=== PATIENT | female | born 1975 | race Caucasian/White ===

== ENCOUNTER 2018-02-20 17:34 | Inpatient (IN) | payer OTHER ==
[~2018-02-20] VITALS: Ht 144.8 cm; Wt 40.5 kg
[2018-02-20] MEDS ORDERED: HYDROCODONE/APAP 5-325MG TABLET PO ONE (18:45)
[2018-02-20] MEDS ORDERED: HYDROCODONE/APAP 5-325MG TABLET ONE (18:54)
--- NOTE | 2018-02-20 19:02 | NUR ---
REPORT GIVEN TO CHOCOLATE PACKER YEN YI.
--- NOTE | 2018-02-20 19:11 | NUR ---
Priya rose in [facility] - 02/20/18 at 1912 by TOM REPORT GIVEN TO YEN YI.
--- NOTE | 2018-02-20 19:35 | NUR ---
PT IN BED. PT'S VISITOR AT BEDSIDE. PT IS AAOX4. PT IS CALM AND COOPERATIVE. PT'S BREATH SOUND ARE CLEAR AND LUNG SOUNDS ARE EVEN AND UNLABORED. NO SIGNS OF DISTRESS WITNESS BY NURSE OR EXPRESSED BY PT AT THIS TIME.
--- NOTE | 2018-02-20 21:00 | NUR ---
REPORT GIVEN TO [facility] NURSECHRISTIAN
[2018-02-20] MEDS ORDERED: HYDROCODONE/APAP 5-325MG TABLET PO PRN (21:15)
[2018-02-20] MEDS ORDERED: HYDROCODONE/APAP 10-325 MG TABLET PO PRN (21:15)
[2018-02-20] MEDS ORDERED: MAGNESIUM HYDROXIDE 30 ML LIQUID UDC PO PRN (21:15)
[2018-02-20] MEDS ORDERED: Z GUARD REMEDY PASTE 57 GM TUBE TOP PRN (21:15)
[2018-02-20] MEDS ORDERED: ONDANSETRON 4 MG/2 ML VIAL IV PRN (21:15)
--- NOTE | 2018-02-20 21:17 | NUR ---
Call received from Dr. Segura (ORTHO) who spoke with ERMNamrata regarding case and will see patient in a.m.
--- NOTE | 2018-02-20 21:25 | NUR ---
Admitted a 42 years old female with diagnosis of Left Tibial Fracture. AAOX4. In no acute distress. Left leg immobilizer with SCOTT bandage in place. Complained of severe pain on left leg. Will give Morphine PRN per order. IV site on right AC intact and patent. Routine admission care done. Plan of care initiated. Safety measure initiated and call moore within reach.
--- NOTE | 2018-02-20 21:25 | NUR ---
Pt. admitted to [facility], under care of ELIZABETH MARTINO Belongs List completed
[2018-02-20 21:30] VITALS: BP 96/57
[2018-02-20] MEDS: MORPHINE SULFATE 2 MG/1 ML DISP.SYRIN IV PRN (22:03)
[2018-02-20] MEDS: IV NS 1000 ML 1,000 ML IV PRN (22:04)
[2018-02-21 04:00] VITALS: BP 92/44
[2018-02-21] MEDS: MORPHINE SULFATE 2 MG/1 ML DISP.SYRIN IV PRN ×3 (04:32→22:52)
[2018-02-21 05:34] VITALS: BP 98/54
--- NOTE | 2018-02-21 06:15 | NUR ---
AOx4. In no acute distress. IV site on right AC remains intact and patent. IVF infusing. Left leg immobilizer in place. Ice compress provided to affected area. Morphine PRN given for complain of pain. Needs attended to and met. Safety measure maintained and call moroe within reach.
[2018-02-21 06:38] LABS: CREATININE 0.6 mg/dL (0.6-1.3); MAGNESIUM 1.9 mg/dL (1.8-2.4); PHOSPHOROUS 3.5 mg/dL (2.5-4.9); POTASSIUM 3.5 mmol/L (3.5-5.1)
[2018-02-21 07:18] LABS: BASOPHILS % (AUTO) 0.2 % (0.0-2.0); EOSINOPHILS % (AUTO) 0.4 % (0.0-7.0); HEMATOCRIT 35.8 % (31.2-41.9); HEMOGLOBIN 12.3 g/dL (10.9-14.3); LYMPHOCYTES # (AUTO) 2.7 K/uL (20.0-40.0); LYMPHOCYTES % (AUTO) 30.1 % (20.5-51.5); MEAN CORPUSCULAR HEMOGLOBIN 31.9 uug (24.7-32.8); MEAN CORPUSCULAR HGB CONC 34 g/dL (32.3-35.6); MEAN CORPUSCULAR VOLUME 93.1 fL (75.5-95.3); MONOCYTES % (AUTO) 11.4 % (0.0-11.0); NEUTROPHILS # (AUTO) 5.1 K/uL (1.8-8.9); NEUTROPHILS % (AUTO) 57.9 % (38.5-71.5); PLATELET COUNT (AUTO) 190 K/uL (179-408); RED BLOOD CELL COUNT(AUTO) 3.85 MIL/uL (3.63-4.92); WHITE BLOOD COUNT (AUTO) 8.9 K/uL (3.8-11.8)
[2018-02-21 11:08] VITALS: BP 100/50
[2018-02-21] MEDS: IV NS 1000 ML 1,000 ML IV PRN ×2 (11:10→22:51)
[2018-02-21 15:33] VITALS: BP 98/41
--- NOTE | 2018-02-21 20:00 | NUR ---
Received patient laying in bed. HOB slightly elevated. A/O x 4. In no acute distress noted. IVF infusing in the R FA. C/O pain and discomfort at fractured leg. Refuse pain medication at the moment. Brace in place on the left lower leg. Safety initiated. DVT pump on the right leg. Call light within reach. Will closely monitor.
[2018-02-22] VITALS (7 sets, daily range): BP systolic 94–116; BP diastolic 48–80
--- NOTE | 2018-02-22 05:28 | NUR ---
Patient slept intermittently t/o shift. C/O pain on the fx leg (Left), meds given, stated relief. IVF infusing on the right AC, patent and intact. Good urine output. U/A was sent to lab. DVT remains in place. Pre op check list done. Safety and comfort measures maintained t/o shift. All meds given as ordered. All needs met.
[2018-02-22 06:48] LABS: BASOPHILS % (AUTO) 0.2 % (0.0-2.0); EOSINOPHILS # (AUTO) 0.1 K/uL (0.0-0.7); EOSINOPHILS % (AUTO) 0.8 % (0.0-7.0); HEMATOCRIT 34.8 % (31.2-41.9); HEMOGLOBIN 11.9 g/dL (10.9-14.3); LYMPHOCYTES # (AUTO) 2.3 K/uL (20.0-40.0); LYMPHOCYTES % (AUTO) 23.6 % (20.5-51.5); MEAN CORPUSCULAR HGB CONC 34 g/dL (32.3-35.6); MEAN CORPUSCULAR VOLUME 93.4 fL (75.5-95.3); MONOCYTES # (AUTO) 0.9 K/uL (2.0-10.0); MONOCYTES % (AUTO) 9.5 % (0.0-11.0); NEUTROPHILS # (AUTO) 6.5 K/uL (1.8-8.9); NEUTROPHILS % (AUTO) 65.9 % (38.5-71.5); PLATELET COUNT (AUTO) 185 K/uL (179-408); RED BLOOD CELL COUNT(AUTO) 3.73 MIL/uL (3.63-4.92); WHITE BLOOD COUNT (AUTO) 9.8 K/uL (3.8-11.8)
[2018-02-22 06:54] LABS: CREATININE 0.6 mg/dL (0.6-1.3); POTASSIUM 3.5 mmol/L (3.5-5.1)
[2018-02-22] MEDS ORDERED: POLYMYXIN B SULFATE 500,000 UNITS, BACITRACIN 50,000 UNITS, NORMAL SALINE 20 ML MC ONE ×3 (07:15)
[2018-02-22] MEDS ORDERED: BUPIVACAINE 0.25% 30 ML VIAL ONE (07:44)
--- NOTE | 2018-02-22 08:19 | NUR ---
pt went for surgery via bed in stable condition
[2018-02-22] MEDS ORDERED: HYDROMORPHONE 2 MG/1 ML DISP.SYRIN ONE (08:42)
[2018-02-22] MEDS ORDERED: MIDAZOLAM HCL 2 MG/2 ML VIAL ONE (08:43)
[2018-02-22] MEDS ORDERED: SEVOFLURANE 250 ML BOTTLE ONE (08:47)
[2018-02-22] MEDS ORDERED: MORPHINE SULFATE 4 MG/1 ML DISP.SYRIN IV PRN (11:00)
[2018-02-22] MEDS ORDERED: KETOROLAC TROMETHAMINE 30 MG INJ IM ONE (11:17)
[2018-02-22] MEDS ORDERED: LIDOCAINE HCL 2% 5 ML JELLY MC ONE (11:17)
[2018-02-22] MEDS ORDERED: CEFAZOLIN 1 G VIAL MC ONE (11:17)
[2018-02-22] MEDS ORDERED: DEXAMETHASONE SOD PHOSPHATE 4 MG INJ IV ONE (11:17)
[2018-02-22] MEDS ORDERED: PROPOFOL 200 MG/20 ML BOTTLE IV ONE (11:17)
[2018-02-22] MEDS ORDERED: LIDOCAINE HCL 2% 20 ML VIAL MC ONE (11:17)
[2018-02-22] MEDS ORDERED: diphenhydrAMINE 50 MG/1 ML VIAL MC ONE (11:17)
[2018-02-22] MEDS ORDERED: IV LACTATED RINGERS SOLUTION 1,000 ML BAG IV ONE (11:17)
[2018-02-22] MEDS ORDERED: ONDANSETRON 4 MG/2 ML VIAL IV ONE (11:22)
--- NOTE | 2018-02-22 11:26 | NUR ---
pt received back from recovery room via bed in stable condition
[2018-02-22] MEDS: POTASSIUM CHLORIDE 20 MEQ in IV D5 1/2 NS 1000 ML 1,000 ML IV PRN (11:29)
[2018-02-22] MEDS ORDERED: MORPHINE SULFATE 2 MG/1 ML DISP.SYRIN IV PRN (12:30)
[2018-02-22] MEDS: CEFAZOLIN 1 G in PREMIXED 1 EACH IV SCH (17:13)
--- NOTE | 2018-02-22 20:00 | NUR ---
RECEIVED PATIENT AWAKE IN BED. A/O X4. DENIES PAIN OR DISCOMFORT AT THIS TIME. LEFT LOWER LEG ELEVATED ON PILLOWS. ICE APPLIED. NEUROVASCULAR CHECKS WNL. PULSE PRESENT. SENSATION PRESENT. VSS. IVF INFUSING WELL ORDERED. BED ALARM ON. CALL LIGHT IN REACH. ALL NEEDS ATTENDED. WILL CONTINUE TO MONITOR AND ASSESS.
[2018-02-22] MEDS: HYDROCODONE/APAP 10-325 MG TABLET PO PRN (20:40)
[2018-02-23] MEDS: CEFAZOLIN 1 G in PREMIXED 1 EACH IV SCH (01:24)
[2018-02-23] MEDS: POTASSIUM CHLORIDE 20 MEQ in IV D5 1/2 NS 1000 ML 1,000 ML IV PRN ×2 (01:28→22:04)
[2018-02-23 04:00] VITALS: BP 98/52
[2018-02-23] MEDS: HYDROCODONE/APAP 10-325 MG TABLET PO PRN ×3 (04:46→22:03)
[2018-02-23 06:25] LABS: BASOPHILS % (AUTO) 0.2 % (0.0-2.0); EOSINOPHILS % (AUTO) 0.2 % (0.0-7.0); HEMATOCRIT 32.7 % (31.2-41.9); HEMOGLOBIN 11.1 g/dL (10.9-14.3); LYMPHOCYTES % (AUTO) 17.2 % (20.5-51.5); MEAN CORPUSCULAR HEMOGLOBIN 31.3 uug (24.7-32.8); MEAN CORPUSCULAR HGB CONC 34 g/dL (32.3-35.6); MONOCYTES # (AUTO) 1.4 K/uL (2.0-10.0); MONOCYTES % (AUTO) 12.2 % (0.0-11.0); NEUTROPHILS # (AUTO) 8.2 K/uL (1.8-8.9); NEUTROPHILS % (AUTO) 70.2 % (38.5-71.5); PLATELET COUNT (AUTO) 188 K/uL (179-408); RED BLOOD CELL COUNT(AUTO) 3.56 MIL/uL (3.63-4.92); WHITE BLOOD COUNT (AUTO) 11.6 K/uL (3.8-11.8)
[2018-02-23 06:29] LABS: CARBON DIOXIDE 24 mmol/L (21-32); CHLORIDE 105 mmol/L (98-107); CREATININE 0.5 mg/dL (0.6-1.3); GLUCOSE 118 mg/dL (74-106); POTASSIUM 3.6 mmol/L (3.5-5.1); UREA NITROGEN, BLOOD 8 mg/dL (7-18)
[2018-02-23] MEDS: CALCIUM CARBONATE 500 MG TABLET PO SCH (08:24)
[2018-02-23 11:00] VITALS: BP 101/56
[2018-02-23 15:00] VITALS: BP 105/60
--- NOTE | 2018-02-23 18:00 | NUR ---
PATIENT ALERT, IN NO DISTRESS. ASSISTED WITH TOILETING NEEDS. PATIENT S/P ORIF LEFT TIBIA. IMMOBILIZER ON LEFT LOWER EXTREMITY SECURED AND INTACT. PATIENT NO C/O OF NUMBNESS/TINGLING ON THE LEFT LOWER LEG, ABLE TO WIGGLE TOES, SENSATION INTACT. TEMPERATURE, COLOR ON BILATERAL LEGS SYMMETRICAL. PATIENT ABLE TO USE CRUTCHES, NON WEIGHT BEARING ON LEFT FOOT, ABLE TO GO TO THE TOILET. LEFT LEG ELEVATED WITH PILLOWS WHILE IN BED. IVF INFUSING, NO INFILTRATION NOTED. SAFETY MEASURES IN PLACE.
--- NOTE | 2018-02-23 19:10 | NUR ---
RECEIVED PT AWAKE ON BED, AAOX4, NO SOB, DENIES ANY CHEST PAIN. IV SITE ON LAC, PATENT AND INTACT. SAFETY MEASURES INITIATED, CALL FRANCOIS WITHIN REACH.
[2018-02-23 19:42] VITALS: BP 109/36
[2018-02-24 03:50] VITALS: BP 99/52
--- NOTE | 2018-02-24 06:45 | NUR ---
PT IN BED, AAOX4, NOT IN ACUTE DISTRESS. NO SOB, DENIES ANY CHEST PAIN. DENIES TINGLING/NUMBING ON LEFT LOWER LEG, PULSE AND SENSATION PRESENT, ABLE TO MOVE TOES. SAFE ENVIRONMENT MAINTAINED. ALL NEEDS MET AND ATTENDED, CALL FRANCOIS WITHIN REACH.
[2018-02-24] MEDS: CALCIUM CARBONATE 500 MG TABLET PO SCH (08:17)
[2018-02-24] MEDS: ACETAMINOPHEN 325 MG TABLET PO PRN ×2 (09:46→18:36)
[2018-02-24 11:44] VITALS: BP 96/52
[2018-02-24] MEDS: POTASSIUM CHLORIDE 20 MEQ in IV D5 1/2 NS 1000 ML 1,000 ML IV PRN (14:58)
[2018-02-24 15:50] VITALS: BP 93/46
--- NOTE | 2018-02-24 18:18 | NUR ---
Nurse Notes: patient alert and oriented x 4, able to make needs known remained stable throughout the shift with no acute changes noted. no SOB or distress. Assessed and reassessed for pain, medicated with Tylenol- relieved. Skin assessed. all needs were attended and anticipated. safety precautions observed. hourly rounding done, call light and telephone within reach at all times, bed alarm and bed brakes on for safety. patient will not be discharged today going to [facility] until patient is evaluated by PT using a front wheel walker as ordered, patient and motherVeronique are aware. Will continue to monitor. Will endorse accordingly to incoming shift for continuity of care.
--- NOTE | 2018-02-24 19:20 | NUR ---
RECEIVED SHIFT REPORT. PT IN BED, NO COMPLAINTS AT THIS TIME. BED IN LOW AND LOCKED POSITION WITH BILATERAL UPPER SIDERAILS UP. CALL LIGHT WITHIN REACH. PT UNDERSTANDS USE OF CALL LIGHT.
[2018-02-24 20:00] VITALS: BP 94/47
--- NOTE | 2018-02-24 20:39 | NUR ---
PT IS REASSIGNED TO [facility]O [facility]GR[facility]. REPORT GIVEN, PT STABLE AT THIS TIME.
--- NOTE | 2018-02-24 22:00 | NUR ---
RECEIVED REPORT FROM RN. PATIENT AWAKE IN BED. A/O X4. DENIES PAIN OR DISCOMFORT AT THIS TIME. LEFT LOWER LEG ELEVATED ON PILLOWS. NEUROVASCULAR CHECKS WNL. PULSE PRESENT. SENSATION PRESENT. VSS. IVF INFUSING WELL ORDERED. BED ALARM ON. CALL LIGHT IN REACH. ALL NEEDS ATTENDED. WILL CONTINUE TO MONITOR AND ASSESS.
[2018-02-25 04:35] VITALS: BP 98/48
[2018-02-25] MEDS: POTASSIUM CHLORIDE 20 MEQ in IV D5 1/2 NS 1000 ML 1,000 ML IV PRN (05:17)
--- NOTE | 2018-02-25 06:27 | NUR ---
PATIENT AWAKE IN BED. DENIES PAIN. SLEPT WELL. CALL LIGHT IN REACH. ALL NEEDS ATTENDED. WILL CONTINUE TO MONITOR AND ASSESS.
[2018-02-25] MEDS: CALCIUM CARBONATE 500 MG TABLET PO SCH (08:08)
--- NOTE | 2018-02-25 09:28 | NUR ---
pt seen on rounding. pt continues to be stable. pt has good bed mobility. pt used bed guaman to void. pt reports no pain. pt given meds whole. will continue to monitor.
[2018-02-25 11:10] VITALS: BP 100/55
[2018-02-25 15:32] VITALS: BP 110/54
--- NOTE | 2018-02-25 18:44 | NUR ---
pt discharged at 1845 with ambulance taking patient to [facility]. vitals stable upon dischage. no signs of acute distress. pt verbalizes understanding with plan of care. incision site photo taken and placed in chart. pt left with all belongings, pt signed belongings list. pt also signed discharge summary.
== END 2018-02-25 18:52 | DRG 313 ==
LOC: ER 17:36 → MED 21:11
PROVIDERS: ADMIT Registered Nurse; ATTEND Registered Nurse
PROC: 0QSH04Z Reposition Left Tibia with Internal Fixation Device, Open Approach (ICD-10-PCS; principal; 2018-02-22 09:01)
DX: S82.192A Other fracture of upper end of left tibia, initial encounter for closed fracture (principal); F41.9 Anxiety disorder, unspecified; W16.622A Jumping or diving into natural body of water striking bottom causing other injury, initial encounter; Y93.11 Activity, swimming; Y92.832 Beach as the place of occurrence of the external cause
CPT/HCPCS: 36415; 73590; 76000; 83735; 84100; 84703; 85018; 85025; 85610; 85730; 86850; 86900; 86901; 97110; 97116; 97530; A4649; A4663; J0690; J1100; J1170; J1200; J1885; J2250; J2270; J2405; J3480; J3490; J7030; J7120